=== PATIENT | female | born 2000 | race Native Hawaiian/Other Pacific Islander ===

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

== ENCOUNTER 2019-11-11 16:47 | Emergency (ER) | payer OTHER ==
[~2019-11-11] VITALS: Ht 165.1 cm; Wt 107.5 kg
[2019-11-11 16:55] VITALS: BP 151/80; TEMP 101
== END 2019-11-11 17:52 | disposition home or self-care (01) ==
LOC: ED 16:47
DX: J11.1 Influenza due to unidentified influenza virus with other respiratory manifestations (principal); R50.9 Fever, unspecified; F17.210 Nicotine dependence, cigarettes, uncomplicated
CPT/HCPCS: 87502; 87651; 99283

== ENCOUNTER 2020-02-16 20:20 | Emergency (ER) | payer OTHER ==
[~2020-02-16] VITALS: Ht 165.1 cm; Wt 104.3 kg
[2020-02-16 21:21] LABS: PLATELET COUNT 128 K/uL (152-353)
[2020-02-16 21:31] LABS: POTASSIUM 4.3 mmol/L (3.6-5.2)
[2020-02-16 21:50] VITALS: BP 121/71; TEMP 98.1
== END 2020-02-16 21:50 | disposition home or self-care (01) ==
LOC: ED 20:20
PROVIDERS: Hospitalist
DX: J06.9 Acute upper respiratory infection, unspecified (principal); J40 Bronchitis, not specified as acute or chronic; F17.210 Nicotine dependence, cigarettes, uncomplicated
CPT/HCPCS: 36415; 80048; 85027; 87502; 87651; 99283

== ENCOUNTER 2020-05-03 21:47 | Emergency (ER) | payer OTHER ==
[~2020-05-03] VITALS: Ht 165.1 cm; Wt 104.3 kg
[2020-05-03 22:50] LABS: PLATELET COUNT 256 K/uL (152-353)
[2020-05-03 23:00] LABS: POTASSIUM 3.5 mmol/L (3.6-5.2)
[2020-05-04 01:28] VITALS: BP 136/68; TEMP 99
== END 2020-05-04 01:28 | disposition home or self-care (01) ==
LOC: ED 21:47
PROVIDERS: Emergency Medicine
DX: R10.9 Unspecified abdominal pain (principal)
CPT/HCPCS: 36415; 80053; 81000; 81025; 82150; 83690; 85027; 96374; 99284; J1885; Q9963

== ENCOUNTER 2020-10-27 18:04 | Emergency (ER) | payer OTHER ==
[~2020-10-27] VITALS: Ht 165.1 cm; Wt 104.3 kg
[2020-10-27 20:30] VITALS: BP 119/62; TEMP 98.3
== END 2020-10-27 20:30 | disposition home or self-care (01) ==
LOC: ED 18:04
PROC: 2W3RX1Z Immobilization of Left Lower Leg using Splint (ICD-10-PCS; principal; 2020-10-27)
DX: S93.492A Sprain of other ligament of left ankle, initial encounter (principal); W10.8XXA Fall (on) (from) other stairs and steps, initial encounter; Y92.89 Other specified places as the place of occurrence of the external cause
CPT/HCPCS: 96374; 99284; J1885

== ENCOUNTER 2021-09-05 19:10 | Emergency (ER) | payer OTHER ==
[~2021-09-05] VITALS: Ht 165.1 cm; Wt 112.9 kg
[2021-09-05 20:20] VITALS: BP 128/84; TEMP 98.2
== END 2021-09-05 20:20 | disposition home or self-care (01) ==
LOC: ED 19:10
DX: J20.9 Acute bronchitis, unspecified (principal); F17.210 Nicotine dependence, cigarettes, uncomplicated; Z20.822 Contact with and (suspected) exposure to COVID-19
CPT/HCPCS: 87635; 99283; U0003

== ENCOUNTER 2022-04-25 23:33 | Emergency (ER) | payer OTHER ==
[~2022-04-25] VITALS: Ht 162.6 cm; Wt 121.6 kg
[2022-04-26 00:57] LABS: POTASSIUM 3.5 mmol/L (3.6-5.2); SODIUM 140 mmol/L (136-145)
[2022-04-26 00:59] LABS: PLATELET COUNT 254 K/uL (152-353)
[2022-04-26 01:30] VITALS: BP 141/81; TEMP 98.1
== END 2022-04-26 01:35 | disposition home or self-care (01) ==
LOC: ED 23:33
PROVIDERS: Emergency Medicine
DX: M79.18 Myalgia, other site (principal); R07.89 Other chest pain
CPT/HCPCS: 36415; 80053; 84484; 85027; 93005; 96372; 99284; J1885

== ENCOUNTER 2022-09-21 13:33 | Emergency (ER) | payer OTHER ==
[~2022-09-21] VITALS: Ht 162.6 cm; Wt 121.6 kg
[2022-09-21 13:35] VITALS: TEMP 99.3
[2022-09-21 14:10] VITALS: BP 150/86
== END 2022-09-21 14:10 | disposition home or self-care (01) ==
LOC: ED 13:33
DX: H65.191 Other acute nonsuppurative otitis media, right ear (principal); H60.8X1 Other otitis externa, right ear; F17.210 Nicotine dependence, cigarettes, uncomplicated
CPT/HCPCS: 99281